=== PATIENT | female | born 1960 | race Caucasian/White ===

== ENCOUNTER 2018-02-13 13:13 | Emergency (ER) | payer OTHER ==
[~2018-02-13] VITALS: Ht 165.1 cm; Wt 81.7 kg
[~2018-02-13 13:13] MED LIST: ALPR.25 PO; ALPR.5; ASPI81CH; ATEN50 PO; ATOR10 PO; ATOR80 PO; BENA10 PO; BENA20 PO; BUTASPCAF; BUTASPCAFT PO; CARB100CH PO; CARB100ER PO; CHOL10002 PO; CIME400; CLIN150 PO; CONEST.625 PO; FERR325 PO; GEMF600 PO; HYDACE5 PO; HYDACE5325 PO; HYDCHL25 PO; LACT10SY PO; LORA10ER PO; METO50 PO; NAPR500 PO; NIFE60ER; Norco 5-325 Ta1 EACH PO; OXYACE5T; OXYACE5T PO; PENVK500 PO; PROM25 PO; Percocet 5-3251 EACH PO; Peridex480 ML SS; RANI150 PO; SERT100 PO; SERT50 PO; SMZ-TMP; SPIR25 PO; SULTRIDS PO; TRAZ50 PO; VITAMIN D22000 UNIT PO; Veetids 500500 MG PO; [UNRECOGNIZED DRUG - REMARK]; [UNRECOGNIZED DRUG - REMARK]
[2018-02-13] MEDS ORDERED: Amoxicillin500 MG PO (13:55)
== END 2018-02-13 14:10 | disposition home or self-care (01) ==
LOC: ER 13:13
DX: K04.7 Periapical abscess without sinus (principal); F10.10 Alcohol abuse, uncomplicated; Z88.8 Allergy status to other drugs, medicaments and biological substances; Z79.899 Other long term (current) drug therapy; Z79.82 Long term (current) use of aspirin; I10 Essential (primary) hypertension; F32.9 Major depressive disorder, single episode, unspecified; Z87.891 Personal history of nicotine dependence
CPT/HCPCS: 93005; 93010; 99283

== ENCOUNTER → 2025-02-09 | Outpatient (CLI) | payer OTHER ==
[~2025-02-09] MED LIST changes: +Amoxicillin500 MG PO; +PROP80ER PO
[2025-02-09 17:38] LABS: BASOPHILS PERCENT AUTO 1 % (0-2); EOSINOPHILS ABSOLUTE AUTO 0.39 K/mm3 (0.00-0.68); EOSINOPHILS PERCENT AUTO 5 % (0-6); Hematocrit 37.6 % (33.0-51.0); IMMATURE GRAN ABSOLUTE AUTO 0.02 K/mm3 (0.00-0.10); IMMATURE GRAN PERCENT AUTO 0 % (0-1); LYMPHOCYTES ABSOLUTE AUTO 2.52 K/mm3 (0.84-5.20); LYMPHOCYTES PERCENT AUTO 34 % (21-46); MONOCYTES ABSOLUTE AUTO 0.56 K/mm3 (0.16-1.47); MONOCYTES PERCENT AUTO 8 % (4-13); Mean Corpuscular HGB Conc 34.6 g/dL (31.5-36.5); Mean Corpuscular Volume 90 fL (80-100); Mean Platelet Volume 10.7 fL (9.1-12.4); NEUTROPHILS ABSOLUTE AUTO 3.79 K/mm3 (1.96-9.15); NEUTROPHILS PERCENT AUTO 51 % (41-73); Platelet Count 262 K/mm3 (150-400); RDW Coefficient Variation 12.8 % (11.7-14.2); RDW Standard Deviation 41.7 fL (35.1-46.3); White Blood Cell Count 7.38 K/mm3 (4.00-11.30)
[2025-02-09 17:56] LABS: Albumin, Blood 3.5 g/dL (3.4-5.0); Albumin/Globulin Ratio 0.9 (0.8-1.8); Bilirubin, Total 0.3 mg/dL (0.1-1.0); Bun/Creatinine Ratio 11.4 (12.0-20.0); Calcium, Blood 8.8 mg/dL (8.5-10.1); Creatinine, Blood 0.7 mg/dL (0.40-1.00); Globulin, Blood 3.7 g/dL (2.2-4.0); Potassium, Blood 3.8 mmol/L (3.5-5.5); Thyroid Stimulating Hormone 1.442 uIU/mL (0.360-4.800); Total Protein, Blood 7.2 g/dL (6.4-8.2)
== END ==
LOC: LAB SHORT 17:33 → LAB 17:33
PROVIDERS: Internal Medicine
DX: R35.89 Other polyuria (principal); R60.0 Localized edema
CPT/HCPCS: 80053; 83036; 83880; 84443; 85025

== ENCOUNTER → 2025-05-03 | Outpatient (CLI) | payer SELFPAY | END | disposition home or self-care (01) | LOC: LAB SHORT 16:00 → LAB 16:00 | PROVIDERS: Obstetrics & Gynecology | DX: Z01.419 Encounter for gynecological examination (general) (routine) without abnormal findings (principal) | CPT/HCPCS: 87624; G0123 ==